=== PATIENT | female | born 1985 | race Caucasian/White ===

== ENCOUNTER 2023-05-14 11:02 | Outpatient (CLI) | payer BC, SELFPAY | END 2023-05-14 11:03 | disposition home or self-care (01) | PROVIDERS: PCP Nurse Practitioner Family; Visit Provider Nurse Practitioner Family | DX: Z00.00 Encounter for general adult medical examination without abnormal findings (principal); R63.5 Abnormal weight gain | CPT/HCPCS: 84443 ==

== ENCOUNTER 2023-09-11 09:07 | Outpatient (CLI) | payer BC, SELFPAY ==
--- NOTE | 2023-09-11 09:15 | CRLHL7_ITS ---
For Patients: As a result of the Century Cures Act, medical imaging exams and procedure reports are released immediately into your electronic medical record. You may view this report before your referring provider. If you have questions, please contact your health care provider. BILATERAL SCREENING MAMMOGRAM WITH COMPUTER-AIDED DETECTION AND TOMOSYNTHESIS TECHNIQUE: CC and MLO views were obtained. These mammographic images have been obtained using full-field digital technique. These mammographic images were interpreted with the benefit of computer-aided detection. Breast Tomosynthesis was used in this interpretation. COMPARISON FILM: Baseline. FINDINGS: The breasts are heterogeneously dense, which may obscure small masses IMPRESSION: There is no radiographic evidence for malignancy. ASSESSMENT: BI-RADS Category 1: Negative RECOMMENDATION: Routine screening mammogram in 1 year. A lay language report of this examination will be provided to the patient. Tyler Franco M.D. Diagnostic/Nuclear Medicine Radiologist [email or web address] ASTER/Dictated by: Tyler Franco MD @ 09/12/2023 9:19:00 AM (Electronically Signed)
== END 2023-09-11 09:08 | disposition home or self-care (01) ==
LOC: MAMMO 09:07
PROVIDERS: PCP Nurse Practitioner Family; Visit Provider Nurse Practitioner Family
DX: Z12.31 Encounter for screening mammogram for malignant neoplasm of breast (principal); R92.2 Inconclusive mammogram; Z80.3 Family history of malignant neoplasm of breast
CPT/HCPCS: 77063; 77067

== ENCOUNTER 2024-05-21 11:42 | Outpatient (CLI) | payer BC, SELFPAY ==
--- OUTSIDE RECORDS SUMMARY | 2024-05-21 11:48 | XMS_ITS | Referral Summary ---
Author Organization [facility] Address [address] [place] [address] Care Team Providers Care Entertainment Musician Name Role Phone Lucy Minor M.D. Primary Care Provider Source Comments Patient records contain information from all sites at [facility]. For routine questions regarding patient records, call [phone] during business hours, M-F 8:00 AM - 5:00 PM Central Time. Record requests for emergency care only can be directed to [phone] at any time.[facility] Allergies Active Allergy Reactions Criticality Noted Date Comments House Dust Mite Headache Medications Medication Sig Dispensed Refills Start Date End Date Status fluticasone (FLONASE) 50 mcg/actuation nasal spray Administer 2 sprays into affected nostril(s) 2 (two) times a day. 10/23/2016 Active fexofenadine (MANJULA) 60 mg tablet Take 60 mg by mouth daily. Active norethindrone (MICRONOR) 0.35 mg tablet TAKE 1 TABLET BY MOUTH DAILY 84 tablet 4 06/28/2020 Active sertraline (ZOLOFT) 50 mg tablet Take 50 mg by mouth daily. Active linaCLOtide (LINZESS) 145 mcg capsule Take 1 capsule (145 mcg total) by mouth every morning before breakfast. 30 capsule 1 06/19/2023 Active lubiprostone (AMITIZA) 8 mcg capsule Take 1 capsule (8 mcg total) by mouth 2 (two) times a day with meals. Take with meals 60 capsule 11 06/21/2023 Active linaCLOtide (LINZESS) 145 mcg capsule Take 1 capsule (145 mcg total) by mouth every morning before breakfast. 90 capsule 3 07/19/2023 07/13/2024 Active Active Problems Problem Noted Date Diagnosed Date Migraine Headache Classic 07/15/2018 Tendinitis Achilles Left 07/15/2018 Tendinitis Achilles Right 07/15/2018 Depression Major 08/07/2017 Rhinitis Allergic Dust Mite 03/27/2016 Irritable Bowel Syndrome With Constipation 11/24 Fasciitis Plantar 06/20/2011 Overview (07/15/2018): right Immunizations Name Administration Dates Next Due Influenza (IM) Preservative Free 08/11/2013 Influenza Split 07/31/2012 Influenza, Injectable, Mdck, Preservative Free, Quadrivalent 06/19/2020 SARS-COV-2 (COVID-19) - PFIZ ER (Discontinued)(12 years or older) 08/25/2021 Tdap 01/31/2017,02/23/2014,05/04/2010 influenza vaccine quad (FLUZONE/FLUARIX) (6 months and older)(PF) 07/28/2021,09/05/2019,08/16/2018,2016,08/06/2015,08/13/2014 Social History Tobacco Use Types Packs/Day Years Used Date Smoking Tobacco: Never Smokeless Tobacco: Never Tobacco Cessation:Counseling Given: Not Answered Alcohol Use Standard Drinks/Week Comments Yes 3 (1 standard drink = 0.6 oz pur e alcohol) Humiliation, Afraid, Rape, and Kick questionnair e Answer Date Recorded Within the last year, have y ou been afraid of your partner or ex-partner? No 05/21/2023 Within the last year, have y ou been humiliated or emotionally abused in other ways by your partner or ex-partner? No Within the last year, have y ou been kicked, hit, slapped, or otherwise physically hurt by your partner or ex-partner? No 05/21/2023 Within the last year, have y ou been raped or forced to have any kind of sexual activity by your partner or ex-partner? No 05/21/2023 Overall Financial Resource Strain (CARDIA) Answe r Date Recorded How hard is it for you to pa y for the very basics like food, housing, medical care, and heating? Not very hard 05/21/2023 Exercise Vital Sign Answer Date Recorde d On average, how many days pe r week do you engage in moderate to strenuous exercise (like a brisk walk)? 4 days 05/21/2023 On average, how many minutes do you engage in exercise at this level? 30 min 05/21/2023 Hunger Vital Sign Answer Date Recorded Within the past 12 months, y ou worried that your food would run out before you got the money to buy more. Never true 05/21/20 23 Within the past 12 months, t he food you bought just didn't last and you didn't have money to get more. Never true 05/21/2023 PRAPARE - Transportation Answer Date Re corded In the past 12 months, has l ack of transportation kept you from medical appointments or from getting medications? No 04/2023 In the past 12 months, has l ack of transportation kept you from meetings, work, or from getting things needed for daily living? No 05/21/2023 Nutrition Answer Date Recorded Nutrition: EVOO Fat Source Unknown 05/21 On average, how many serving s of fruits and vegetables do you eat per day (serving size is equal to 1 cup or approximately the size of a tennis ball)? 3-5 05/21/2023 Dental Answer Date Recorded Dental: Regular Dentist Yes 05/21/20 Employment Answer Date Recorded Employment status Employed and actively working without restrictions 05/21/2023 Housing Stability Answer Date Recorded What is your living situation today? I have a [facility] place to live 05/21/2023 Sex and Gender Information Value Date Recorded Sex Assigned at Female 05/26/2018 8:27 PM CDT Gender Identity Female 05/26/2018 8:27 PM CDT Sexual Orientation Straight 05/26/2018 8: 27 PM CDT Last Filed Vital Signs Vital Sign Reading Time Taken Comments Blood Pressure 142/79 05/22/2023 9:41 AM CDT Pulse 59 05/22/2023 9:41 AM CDT Temperature 37 ??C (98.6 ??F) 05/23/2018 4:11 PM CDT Respiratory Rate 18 04/07/2017 12:45 PM CDT Oxygen Saturation 96% 06/24/2018 7:35 AM CDT Inhaled Oxygen Concentration - - Weight 110 kg (243 lb 9.7 oz) 05/22/2023 9:41 AM CDT Height 176 cm (5' 9.29) 05/22/2023 9:41 AM CDT Body Mass Index 35.67 05/22/2023 9:41 AM CDT Plan of Treatment Not on file Procedures Procedure Name Priority Date/Time Associated Diagnosis Comments EXT THINPREP W/HPV CO-TEST SCREEN Routine 12/29/2020 1:15 PM CDT HIV-1/-2 AG AND AB SCREEN Routine 08/23/2016 9:39 AM NURSING SUPPORT WORKER from Last 3 Months or Most Recently Relevant to Health Maintenance Results * EXT ThinPrep w/HPV Co-Test Screen (12/29/2020 1:15 PM CDT) EXT ThinPrep w/HPV Co-Test Screen Normal - See Scanned Report for Details Normal - See Scanned Report for Details, [facility] - Report Received and Scanned Comment:See Care EWverywhere for Results Thin Prep Vial (Cervix/Endocervi x) 12/29/2020 1:15 PM CDT Impressions Evelin Arechiga - 01/10/2021 12:10 PM CDT Resulting Agency [facility] Specimen Collected: 12/29/20 13:15 Last Resulted: 01/10/21 12:10 [facility] Result Received: 11/04/21 15:58 Historical Provider LAB PAP PATHDX ORDER SHAINA * HIV-1/-2 Ag and Ab Screen (08/23/2016 9:39 AM NURSING SUPPORT WORKER) HIV-1/-2 Ag and Ab Screen, S Negative Negative [facility] Comment: Negative result does not rule out HIV infection. If ? acute HIV infection is suspected in a high-risk ? individual, submit plasma specimen for HIV-1 RNA ? quantification test (HIVDQ) and/or HIV-2 DNA/RNA ? test (FHV2Q). ? 08/23/2016 9:39 AM NURSING SUPPORT WORKER 08/23/2016 9:39 AM NURSING SUPPORT WORKER Soheila Johnson SOFTWARE ENGINEER DEVELOPER, CNM LAB MICROBIOLO GY - BLOOD ORDERABLES [facility] [address] [place], [place] [address] from Last 3 Months or Most Recently Relevant to Health Maintenance Care Teams Entertainment Musician Relationship Specialty Start Date End Date Lucy Minor M.D. [address] [place] [address] PCP - General 04/11/24
--- OUTSIDE RECORDS SUMMARY | 2024-05-21 11:48 | XMS_ITS | Data Portability ---
Author Organization [facility] Main Office Address [address], [place] [address] Assessment Encounter Date Assessment Date Assessment LastModified by Organization Details LastModified Time 01/10/2021 01/10/2021 Total time with patient 15 minutes [email or web address] Not available 01/10/2021 11:21:52 Plan of Treatment Reminders Order Date Submit Date Provider Last Modified By Organization Details Last Modified Time Details Appointments None recorded. Lab SARS CoV 2 RNA (COVID-19), QL, seam closer-PCR, respiratory specimen 2020 021 ZOË Main Office, [address], [place], [address], 12:20:27 Referral None recorded. Procedures None recorded. Surgeries None recorded. Imaging None recorded. Medication Orders None recorded. Patient TargetsNo targets recorded. Patient InstructionsNo instructions recorded. Reason for Referral None Reported. Results Created Date Observation Date Name Description Value Unit Range Abnormal Flag LastModifiedBy Organization Detail LastModifiedTime 01/11/2001/10/2021 SARS CoV 2 RNA (COVI D-19) , QL, seam closer-P CR, respi rator y speci men Result Not Detect ed Not Available Main Office [address], [address], 01/10/2021 11:22:24 Result Notes None recorded. Procedures Surgical History Date Name Laterality Status Provider Name and Address Organization Details Recorded Time Caesarean Section completed Arabella bustillos, [facility] 02/08/2021 15:57:21 ENT Surgery completed Arabella bustillos, [facility] 02/08/2021 15:57:27 Imaging Results None recorded. Procedure Notes None recorded. Medical Equipment None Reported. Allergies No known drug allergies Medications Name Sig Start Date Stop Date Status Note LastModified by Organization Details LastModified Time Crystal 0.35 mg tablet active Not Available Not Available Not Available Lanie Allergy active Not Available Not Available Not Available Flonase Allergy Relief active Not Available Not Available Not Available Vitals Date Recorded Body weight Heart rate Body temperature Oxygen saturation Oxygen saturation in Arterial blood by Pulse oximetry Provider Name and Address Organization Details Last Updated DateTime 1 960285. 19 g 86 /min 99.3 [degF] 97 % 97 % Arabella Lidia [facility] 11:05:59 Social History Question Answer Notes LastModified by Organizat ion Details LastModified Time Tobacco Smoking Status Never Smoker Arabella Murillo [facility], [facility] 02/08/2021 15:58:33 What Is Your Level Of Alcohol Consumption? Occasional [email or web address] Information not available 02/08/2021 What Is Your Level Of Caffeine Consumption? Moderate Information not available 02/08/2021 How Much Tobacco Do You Chew? 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 Never Used Smokeless Tobacco [email or web address] Information not available 02/08/2021 How Much Tobacco Do You Smoke? No [email or web address] Information not available 02/08/2021 Sex: Unknown Functional Status None recorded. Mental Status None recorded. Family History Relationship Description Onset Age of this Age Resolved Age Notes Mother Family history of ma lignant neoplasm Mother Hypercholesterolemia Father Migraine Medical History Condition Response Allergies/Hayfever Y Headaches Y Gynecological HistoryNo gynecological history recorded. Obstetrics History GPAL:G 0 P 0 0 0 0 Past Encounters Encounter ID Performer Location Encounter Start Date Encounter Closed Date Diagnosis/Indication Diagnosis SNOMED-CT Code [id number] ANASTACIO Avalos Main Office [address] [place] [id number] 01/10/2021 10:43:14 01/10/2021 17:44:16 Pain in throat 449569520 Exposure t o SARS-CoV-2 827863829 Health Concerns Section Related Observation LastModified by Organization Detai ls LastModified Time None Recorded Concern Status LastModified by Organization Details LastModified Time None Recorded Advance Directives Directive None Recorded Payers Encounter Date Sequence Insurance Name Policy Number Policy Keller Covered Member ID Keller Member ID Guarantor Name 01/10/2021 1 *SELF PAY* Daniela Palm Notes Date Note Type Note Provider Name and Address Organization Details Recorded Time 01/10/2021 text/html HPI Notes: Pt is new to the clinic, here today with c/o ST. Sx started yesterday. Sx worse in AM. Has been using ibuprofen for sx relief. She has had both covid vaccines, with the 2nd dose 3 weeks ago. They are in town visiting family, she has been exposed to a lot of people recently. No otalgia, eye discomfort, cough, SOB, N/V/D, body aches, F/C, rash, SYKES. Juni Palomo, [facility] [address] [place], [address], [place] [facility] 01/10/2021 12:45:06 OBGyn Episode No OBEpisode recorded.
--- OUTSIDE RECORDS SUMMARY | 2024-05-21 11:48 | XMS_ITS | Clinical Summary ---
Author Organization [facility] Address [address] [place] [address] Care Team Providers Care Entry Level Business Analyst Name Role Phone Lucy Minor M.D. Primary Care Provider Source Comments Patient records contain information from all sites at [facility]. For routine questions regarding patient records, call [phone] during business hours, M-F 8:00 AM - 5:00 PM Central Time. Record requests for emergency care only can be directed to [phone] at any time.[facility] Allergies Active Allergy Reactions Criticality Noted [...] quad (FLUZONE/FLUARIX) (6 months and older)(PF) 07/28/2021,09/05/2019,08/16/2018,2016,08/06/2015,08/13/2014 Family History Medical History Relation Name Comments Hyperlipidemia Father Quinten Coronary artery disease Maternal Grandfather Gilbert Hyperlipidemia Maternal Grandfather Gilbert Arthritis Maternal Grandmother Addis Breast cancer Maternal Grandmother Addis Skin cancer Maternal Grandmother Addis Thyroid disease Maternal Grandmother Addis Arthritis Mother Lizz Breast cancer Mother Lizz Hyperlipidemia Mother Lizz Skin cancer Mother Lizz Coronary artery disease Paternal Grandfather Flaquito Dementia Paternal Grandfather Flaquito Diabetes Paternal Grandfather Flaquito Stroke Paternal Grandfather Flaquito Diabetes Paternal Grandmother Ana Fernandez Anxiety disorder Sister Haritha Gestational diabetes Sister Haritha Skin cancer Sister Haritah Relation Name Status Comments Father Quinten Maternal Grandfather Gilbert Maternal Grandmother Addis Mother Lizz Paternal Grandfather Flaquito Paternal Grandmother Ana Fernandez Sister Haritha Social History Tobacco Use Types Packs/Day Years [...] money to buy more. Never true 05/21/20 Within the past 12 months, t he [...] your living situation today? I have a [facility] place to live 05/21/2023 Sex and Gender [...] 05/22/2023 9:41 AM CDT Plan of Treatment Health Maintenance Due Date Last Done Comments Depression Monitoring (PHQ-9) 1985 Hepatitis C Screening 1985 Lipid (Cholesterol) Screening 1985 Hepatitis B Vaccines (1 of 3 - 19+ 3-dose series) 2004 Influenza Vaccine (#1) 2024 , 07/27/2022, 07/28/2021, Additional history exists Cervical Cancer Screening 12/29/20252020, 12/29/2020, 09/20/2016, Additional history exists DTaP,Tdap,and Td Vaccines (4 - Td or Tdap) 01/31/2027 01/31/2017, 02/23/2014, 05/04/2010 HIV Screening Completed 08/23/2016 COVID-19 Vaccine Completed 08/17/2023, , 08/25/2021, Additional history exists HPV Vaccines Aged Out No longer eligi ble based on patient's age to complete this topic Pneumococcal vaccine (0-64 years) Aged Out No longer eligible based on patient's age to complete this topic Procedures Procedure Name Priority Date/Time Associated Diagnosis Comments EXT THINPREP W/HPV CO-TEST SCREEN Routine 12/29/2020 1:15 PM CDT HIV-1/-2 AG AND AB SCREEN Routine 08/23/2016 9:39 AM LOADING UNIT OPERATOR CRIMPING from Last 3 Months or Most Recently [...] - 01/10/2021 12:10 PM CDT Resulting Agency [facility] Specimen Collected: 12/29/20 13:15 Last Resulted: 01/10/21 12:10 Received From: [facility] Result Received: 11/04/21 15:58 Historical Provider LAB PAP PATHDX ORDER SHAINA * HIV-1/-2 Ag and Ab Screen (08/23/2016 9:39 AM LOADING UNIT OPERATOR CRIMPING) Pathologist [facility] HIV-1/-2 Ag and Ab Screen, S Negative Negative [facility] Comment: Negative result does not rule out HIV infection. If ? acute HIV infection is suspected in a high-risk ? individual, submit plasma specimen for HIV-1 RNA ? quantification test (HIVDQ) and/or HIV-2 DNA/RNA ? test (FHV2Q). ? 08/23/2016 9:39 AM LOADING UNIT OPERATOR CRIMPING 08/23/2016 9:39 AM LOADING UNIT OPERATOR CRIMPING Soheila Johnson CAR AUDIO INSTALLER, CNM LAB MICROBIOLO GY - BLOOD ORDERABLES [facility] [address] [place] [address], [facility] from Last 3 Months or Most Recently Relevant to Health Maintenance Care Teams Entry Level Business Analyst Relationship Specialty Start Date End [place] [address] PCP - General 04/11/24
--- OUTSIDE RECORDS SUMMARY | 2024-05-21 11:48 | XMS_ITS | Clinical Summary ---
Author Organization [facility] Address [place], [place] [address] Care Team Providers Care Retail Parts Pro Name Role Phone Faith Rosales NP Primary Care Provider [phone] Allergies No known active allergies Medications Medication Sig Dispensed Refills Start Date End Date Status Crystal 0.35 mg tablet Take 0.35 mg by mouth once daily. 06/28/2021 Active sertraline (ZOLOFT) 50 mg tablet 05/05/2021 Active fexofenadine (MANJULA) 180 mg tablet Manjula Allergy Active albuterol HFA (PRO-AIR; VENTOLIN; PROVENTIL) 90 mcg/actuation inhalerIndications:Cou gh Inhale 2 Puffs by mouth every 4 hours if needed (cough or wheezing). 1 Each 09/24/2021 Active plecanatide (Trulance) 3 mg tabIndications:Chronic idiopathic constipation Take 3 mg by mouth once daily. 30 Tablet 11 11/02/2021 Active Active Problems No known active problems Immunizations Name Administration Dates Next Due COVID-19 vaccine ([employer]InStaff 30mcg/0.3mL) PF, MDV 08/25/2021 Influenza, IIV4 07/28/2021,08/16/2018,08/17/2017 Social History Tobacco Use Types Packs/Day Years Used Date Smoking Tobacco: Never Smokeless Tobacco: Never Tobacco Cessation:Counseling Given: Yes Alcohol Use Standard Drinks/Week Comments Not Currently 0 (1 standard drink = 0.6 oz pur e alcohol) Social Connections Answer Date Recorded Frequency of Communication with Friends and Fami ly Not on file 10/15/2021 Financial Resource Strain Answer Date R ecorded Difficulty of Paying Living Expenses Not on file 10/15/2021 Difficulty of Paying Living Expenses Not on file 10/15/2021 Sex and Gender Information Value Date Recorded Sex Assigned at Not on file Gender Identity Not on file Sexual Orientation Not on file Obstetrics History Last Filed Vital Signs Vital Sign Reading Time Taken Comments Blood Pressure 146/69 01/06/2023 2:17 PM CDT Pulse 70 01/06/2023 2:17 PM CDT Temperature 36.6 ??C (97.8 ??F) 01/06/2023 2:17 PM CD T Respiratory Rate 16 01/06/2023 2:17 PM CDT Oxygen Saturation 100% 01/06/2023 2:17 PM CDT Inhaled Oxygen Concentration - - Weight 107 kg (235 lb 12.8 oz) 11/02/2021 3:28 P M REGISTERED DENTAL ASSISTANT RDA Height - - Body Mass Index - - Plan of Treatment Health Maintenance Due Date Last Done Comments Tdap 1996 Depression screening for age 12+ 1997 HIV for age 15-65 2000 BMI (ht and wt on same day) for age 18+ 2003 Hepatitis C screening for age 18-79 2003 Tetanus booster 2005 COVID-19 vaccine series ( season) 2023 08/11/2022, 08/25/2021, 12/25/2020, Additional history exists Pap test for age 21-65 12/30/2023 12/29/2020, 2020 Influenza for age 9-49 06/15/2024 , 08/16/2018, 08/17/2017 Pneumococcal series for age 6-64 Aged Out No longer eligible based on patient's age to complete this topic Procedures Procedure Name Priority Date/Time Associated Diagnosis Comments INFECTION PREVENTION COORDINATOR THIN PREP PAP SCREEN IMAGED Routine 12/29/2020 1:15 PM CDT from Last 3 Months or Most Recently Relevant to Health Maintenance Results * INFECTION PREVENTION COORDINATOR THIN PREP PAP SCREEN IMAGED (12/29/2020 1:15 PM CDT) Case Report Gynecologic Cytology Report ? Case: [id number] ? Authorizing Provider: ??Paulina Paul ?Collected: ? 12/29/2020 1315 ? [place], ? Ordering Location: ? [facility] ?Received: ?12/31/2020 1036 ? First Screen: ?Neeta Guzman ? Specimen: ?INFECTION PREVENTION COORDINATOR ThinPrep Vial Screening, Cervical/Vaginal ? 01/10/2021 12:10 PM CDT [facility] INTERPRETATION/ RESULT NEGATIVE FOR INTRAEPITHELIAL LESION OR MALIGNANCY (NIL) (none) 01/10/2021 12:10 PM CDT [facility] IMEN ADEQUACY Satisfactory for evaluation Endocervical component present 01/10/2021 12:10 PM CDT [facility] HPV REQUEST HPV and PAP 01/10/2021 12:10 PM CDT [facility] Date of LMP 12/12/2020 01/10/2021 12:10 PM CDT [facility] Last Pap Date 09/20/2016 01/10/2021 12:10 PM CDT [facility] Last Pap Result NIL 12:10 PM CDT [facility] Comment:-HPV Additional Information 01/10/2021 12:10 PM CDT [facility] Comment: Interpreted at [facility] - [address], [place] [address] Automated Review Successful 01/10/2021 12:10 PM CDT [facility] Comment:Specimen processed s uccessfully by automated human resources support specialist device, ThinPrep Imaging System, [employer] ANCILLARY TESTING INFECTION PREVENTION COORDINATOR HPV Ordered, Please see separate report 01/10/2021 12:10 PM CDT [facility] Note The pap test is a screening technique, not a diagnostic procedure. It is used primarily to screen for squamous cancers and precursor lesions. Published studies have shown that it is subject to both false negative and false positive results. The pap test should not be used as the sole means to diagnose or exclude pre-malignant and malignant lesions. 01/10/2021 12:10 PM CDT [facility] Other (Cervical/Vagina l) 12/29/2020 1:15 PM CDT 12/31/2020 10:36 AM CDT Paulina Paul MD PATHOLOGY/ CYTOLOGY [facility] [address] [place] [address], [place] from Last 3 Months or Most Recently Relevant to Health Maintenance Care Teams Retail Parts Pro Relationship Specialty Start Date End Date Fiath Rosales, CUFF SETTER [address] [place] [address] PCP - General Emergency Medicine 11/02/21
--- OUTSIDE RECORDS SUMMARY | 2024-05-21 11:48 | XMS_ITS ---
Author Organization [facility] Address [address] [place] [address] Care Team Providers Care Manager Business Process Name Role Phone Unavailable Unavailable Unavailable Surgery Details Not on file Complications Check Surgery Details section. Procedure Estimated Blood Loss Check Surgery Details section. Procedure Findings Check Surgery Details section. Procedure Specimens Taken Check Surgery Details section.
== END 2024-05-21 11:43 | disposition home or self-care (01) ==
LOC: NFLDREF 11:46
PROVIDERS: PCP Nurse Practitioner Family; Visit Provider Registered Nurse
DX: R00.2 Palpitations (principal)
CPT/HCPCS: 84443

== ENCOUNTER 2024-05-30 08:24 | Outpatient (CLI) | payer BC, SELFPAY ==
--- OUTSIDE RECORDS SUMMARY | 2024-05-30 08:29 | XMS_ITS ---
Author Organization [facility] Address [address] [place] [address] Care Team Providers Care Slackman Name Role Phone Unavailable Unavailable Unavailable Surgery Details Not on file Complications Check Surgery Details section. Procedure Estimated Blood Loss Check Surgery Details section. Procedure Findings Check Surgery Details section. Procedure Specimens Taken Check Surgery Details section.
--- OUTSIDE RECORDS SUMMARY | 2024-05-30 08:29 | XMS_ITS | Clinical Summary ---
Author Organization [facility] Address [address] [place] [address] Care Team Providers Care Neck Cutter Name Role Phone Lucy Minor M.D. Primary Care Provider Source Comments Patient records contain information from all sites at [facility]. For routine questions regarding patient records, call [phone] during business hours, M-F 8:00 AM - 5:00 PM Central Time. Record requests for emergency care only can be directed to [phone] at any time.[facility] Allergies Active Allergy Reactions Criticality Noted Date [...] Gestational diabetes Sister Haritha Skin cancer Sister Haritha Relation Name Status Comments Father Quinten Maternal [...] your living situation today? I have a [facility] place to live 05/21/2023 Sex and [...] AND AB SCREEN Routine 08/23/2016 9:39 AM DIAMOND SIZER AND SORTER from Last 3 Months or Most Recently [...] - 01/10/2021 12:10 PM CDT Resulting Agency [facility] Specimen Collected: 12/29/20 13:15 Last Resulted: 01/10/21 12:10 Received From: [facility] Result Received: 11/04/21 15:58 Historical Provider LAB PAP PATHDX ORDER SHAINA * HIV-1/-2 Ag and Ab Screen (08/23/2016 9:39 AM DIAMOND SIZER AND SORTER) Pathologist [facility] HIV-1/-2 Ag and Ab Screen, S Negative Negative [facility] Comment: Negative result does not rule out HIV infection. If ? acute HIV infection is suspected in a high-risk ? individual, submit plasma specimen for HIV-1 RNA ? quantification test (HIVDQ) and/or HIV-2 DNA/RNA ? test (FHV2Q). ? 08/23/2016 9:39 AM DIAMOND SIZER AND SORTER 08/23/2016 9:39 AM DIAMOND SIZER AND SORTER Soheila Johnson EDGE BURNISHER UPPERS, CNM LAB MICROBIOLO GY - BLOOD ORDERABLES [facility] [address] [place] [address], [facility] from Last 3 Months or Most Recently Relevant to Health Maintenance Care Teams Neck Cutter Relationship Specialty Start Date End Date [place] [address] PCP - General 04/11/24
--- OUTSIDE RECORDS SUMMARY | 2024-05-30 08:29 | XMS_ITS | Clinical Summary ---
Author Organization [facility] Address [place], [place] [address] Care Team Providers Care Garbage Collector Name Role Phone Faith Rosales NP Primary Care Provider +1- [phone] Allergies No known active allergies Medications Medication [...] Name Administration Dates Next Due COVID-19 vaccine (2C2P [employer] 30mcg/0.3mL) PF, MDV 08/25/2021 Influenza, IIV4 07/28/2021,08/16/2018,08/17/2017 [...] lb 12.8 oz) 11/02/2021 3:28 P M STAND GRINDER Height - - Body Mass Index - [...] Procedure Name Priority Date/Time Associated Diagnosis Comments CHICKEN TENDER THIN PREP PAP SCREEN IMAGED Routine 12/29/2020 1:15 PM CDT from Last 3 Months or Most Recently Relevant to Health Maintenance Results * CHICKEN TENDER THIN PREP PAP SCREEN IMAGED (12/29/2020 1:15 PM CDT) Case Report Gynecologic Cytology Report ? Case: [id number] ? Authorizing Provider: ??Paulina Paul ?Collected: ? 12/29/2020 1315 ? Anne-Marie, ? Ordering Location: ? [facility] ?Received: ?12/31/2020 1036 ? First Screen: ?Neeta Guzman ? Specimen: ?CHICKEN TENDER ThinPrep Vial Screening, Cervical/Vaginal ? 01/10/2021 12:10 PM CDT [facility] INTERPRETATION/ RESULT NEGATIVE FOR INTRAEPITHELIAL LESION OR MALIGNANCY (NIL) (none) 01/10/2021 12:10 PM CDT [facility] IMEN ADEQUACY Satisfactory for evaluation Endocervical component present 01/10/2021 12:10 PM CDT [facility] HPV REQUEST HPV and PAP 01/10/2021 12:10 PM CDT [facility] Date of LMP 12/12/2020 01/10/2021 12:10 PM CDT [facility] Last Pap Date 09/20/2016 01/10/2021 12:10 PM CDT [facility] Last Pap Result NIL 12:10 PM CDT [facility] Comment:-HPV Additional Information 01/10/2021 12:10 PM CDT [facility] Comment: Interpreted at [facility] - [address], [place] [address] Automated Review Successful 01/10/2021 12:10 PM CDT [facility] Comment:Specimen processed s uccessfully by automated television actor device, ThinPrep Imaging System, [employer] ANCILLARY TESTING CHICKEN TENDER HPV Ordered, Please see separate report 01/10/2021 12:10 PM CDT [facility] Note The pap test is a [...] and malignant lesions. 01/10/2021 12:10 PM CDT [facility] Other (Cervical/Vagina l) 12/29/2020 1:15 PM CDT 12/31/2020 10:36 AM CDT Paulina Paul MD PATHOLOGY/ CYTOLOGY [facility] [address] [place] [address], [place] from Last 3 Months or Most Recently Relevant to Health Maintenance Care Teams Garbage Collector Relationship Specialty Start Date End Date Faith Rosales, GRAZING EXAMINER [address] [place] [address] PCP - General Emergency Medicine 11/02/21
--- OUTSIDE RECORDS SUMMARY | 2024-05-30 08:29 | XMS_ITS | Referral Summary ---
Author Organization [facility] Address [address] [place] [address] Care Team Providers Care Rubber Goods Inspector Name Role Phone Lucy Minor M.D. Primary Care Provider Source Comments Patient records contain information from all sites at [facility]. For routine questions regarding patient records, call [phone] during business hours, M-F 8:00 AM - 5:00 PM Central Time. Record requests for emergency care only can be directed to [phone] at any time.[facility] Allergies Active Allergy Reactions Criticality Noted Date [...] your living situation today? I have a [facility] place to live 05/21/2023 Sex and [...] AND AB SCREEN Routine 08/23/2016 9:39 AM GRAIN BUYER from Last 3 Months or Most Recently [...] - 01/10/2021 12:10 PM CDT Resulting Agency [facility] Specimen Collected: 12/29/20 13:15 Last Resulted: 01/10/21 12:10 [facility] Result Received: 11/04/21 15:58 Historical Provider LAB PAP PATHDX ORDER SHAINA * HIV-1/-2 Ag and Ab Screen (08/23/2016 9:39 AM GRAIN BUYER) HIV-1/-2 Ag and Ab Screen, S Negative Negative [facility] Comment: Negative result does not rule out HIV infection. If ? acute HIV infection is suspected in a high-risk ? individual, submit plasma specimen for HIV-1 RNA ? quantification test (HIVDQ) and/or HIV-2 DNA/RNA ? test (FHV2Q). ? 08/23/2016 9:39 AM GRAIN BUYER 08/23/2016 9:39 AM GRAIN BUYER Soheila Johnson BULLET ASSEMBLY PRESS OPERATOR, CNM LAB MICROBIOLO GY - BLOOD ORDERABLES [facility] [address] [place], [place] [address] from Last 3 Months or Most Recently Relevant to Health Maintenance Care Teams Rubber Goods Inspector Relationship Specialty Start Date End Date Lucy Minor M.D. [address] [place] [address] PCP - General 04/11/24
== END 2024-05-30 08:25 | disposition home or self-care (01) ==
PROVIDERS: PCP Nurse Practitioner Family; Visit Provider Nurse Practitioner Family
DX: N64.52 Nipple discharge (principal); R00.2 Palpitations; Z13.220 Encounter for screening for lipoid disorders
CPT/HCPCS: 80061; 83735; 84146

== ENCOUNTER 2024-06-25 08:58 | Outpatient (CLI) | payer BC, SELFPAY ==
--- NOTE | 2024-06-25 08:45 | CRLHL7_ITS ---
For Patients: As a result of the Century Cures Act, medical imaging exams and procedure reports are released immediately into your electronic medical record. You may view this report before your referring provider. If you have questions, please contact your health care provider. BILATERAL DIAGNOSTIC MAMMOGRAM WITH COMPUTER-AIDED DETECTION AND TOMOSYNTHESIS BILATERAL BREAST ULTRASOUND CLINICAL HISTORY: BILATERAL breast nipple discharge. COMPARISON: 09/11/2023. TECHNIQUE: Digital BILATERAL mammogram in four projections with computer-aided detection. Tomosynthesis was used in this interpretation. Real-time ultrasound imaging of BILATERAL breast with imaging documentation. BREAST COMPOSITION: The breasts are heterogeneously dense, which may obscure small masses. FINDINGS: 3D CC/MLO BILATERAL mammogram images submitted. No suspicious masses or architectural distortion. No adenopathy or suspicious calcifications. Targeted BILATERAL subareolar ultrasound performed. No fluid collection or mass. No duct ectasia or intraductal nodule. IMPRESSION: No suspicious findings. No evidence of papilloma. RECOMMENDATIONS: Routine screening mammography. BI-RADS Category 2: Benign Results and recommendations discussed with the patient. A lay language report of this examination will be provided to the patient. Dictated by Oscar Yung MD @ 06/25/2024 12:14:14 PM /sp SP/Dictated by: Oscar Yung MD @ 06/25/2024 12:14:00 PM (Electronically Signed)
--- OUTSIDE RECORDS SUMMARY | 2024-06-25 09:01 | XMS_ITS ---
Author Organization [facility] Address [address] [place] [address] Care Team Providers Care Daub Color Mixer Name Role Phone Unavailable Unavailable Unavailable Surgery Details Not on file Complications Check Surgery Details section. Procedure Estimated Blood Loss Check Surgery Details section. Procedure Findings Check Surgery Details section. Procedure Specimens Taken Check Surgery Details section.
--- OUTSIDE RECORDS SUMMARY | 2024-06-25 09:01 | XMS_ITS | Clinical Summary ---
Author Organization [facility] Address [place], [place] [address] Care Team Providers Care Metal Mixer Name Role Phone Faith Rosales NP Primary Care Provider +1- [phone] Allergies No known active allergies Medications Medication [...] Active Active Problems No known active problems Encounters Date Type Department Care Team Description 06/06/2024 Orders Only [facility] [address] [place] [address] Ifrah Carrizales 1 scan: (1-Ord) Zio Report from Last 3 Months Immunizations Name Administration Dates Next Due COVID-19 vaccine ([employer] 30mcg/0.3mL) PFCLIFTON 08/25/2021 Influenza, IIV4 07/28/2021,08/16/2018,08/17/2017 Social History Tobacco [...] lb 12.8 oz) 11/02/2021 3:28 P M WEB SITE ADMIN Height - - Body Mass Index - - Plan of Treatment Health Maintenance Due Date Last Done Comments Tdap 1996 Depression screening for age 12+ 1997 HIV for age 15-65 2000 BMI (ht and wt on same day) for age 18+ 2003 Hepatitis C screening for age 18-79 2003 Tetanus booster 2005 Pap test for age 21-65 12/30/2023 12/29/2020, 2020 COVID-19 vaccine series (2022- season) 2024 08/11/2022, 08/25/2021, 12/25/2020, Additional history exists Influenza for age 9-49 06/15/2024 , 08/16/2018, 08/17/2017 Pneumococcal series for age 6-64 Aged Out No longer eligible based on patient's age to complete this topic Procedures Procedure Name Priority Date/Time Associated Diagnosis Comments EXTENDED HOLTER Routine 06/06/2024 Palpitations ROLLOFF TRUCK DRIVER THIN PREP PAP SCREEN IMAGED Routine 12/29/2020 1:15 PM CDT from Last 3 Months or Most Recently Relevant to Health Maintenance Results * EXTENDED HOLTER (06/06/2024) Nola Valdez PHARMACY RESOURCE TECH CARDIAC S TIMMY ORD * ROLLOFF TRUCK DRIVER THIN PREP PAP SCREEN IMAGED (12/29/2020 1:15 PM CDT) Case Report Gynecologic Cytology Report ? Case: [id number] ? Authorizing Provider: ??Paulina Paul ?Collected: ? 12/29/2020 1315 ? MD Anne-Marie ? Ordering Location: ? [facility] ?Received: ?12/31/2020 1036 ? First Screen: ?Neeta Guzman ? Specimen: ?ROLLOFF TRUCK DRIVER ThinPrep Vial Screening, Cervical/Vaginal ? 01/10/2021 12:10 PM CDT [facility] INTERPRETATION/ RESULT NEGATIVE FOR INTRAEPITHELIAL LESION OR MALIGNANCY (NIL) (none) 01/10/2021 12:10 PM CDT [facility] IMEN ADEQUACY Satisfactory for evaluation Endocervical component present 01/10/2021 12:10 PM CDT [facility] HPV REQUEST HPV and PAP 01/10/2021 12:10 PM CDT [facility] Date of LMP 12/12/2020 01/10/2021 12:10 PM CDT [facility] Last Pap Date 09/20/2016 01/10/2021 12:10 PM CDT [facility] Last Pap Result NIL 12:10 PM CDT [facility] Comment:-HPV Additional Information 01/10/2021 12:10 PM CDT [facility] Comment: Interpreted at [facility] - [address] [facility] [address], [place] [address] Automated Review Successful 01/10/2021 12:10 PM CDT [facility] Comment:Specimen processed s uccessfully by automated credit compliance officer device, ThinPrep Imaging System, [employer] ANCILLARY TESTING ROLLOFF TRUCK DRIVER HPV Ordered, Please see separate report 01/10/2021 12:10 PM CDT [facility] Note The pap test [...] and malignant lesions. 01/10/2021 12:10 PM CDT [facility] Other (Cervical/Vagina l) 12/29/2020 1:15 PM CDT 12/31/2020 10:36 AM CDT Paulina Paul MD PATHOLOGY/ CYTOLOGY [facility] [address] [place] [address], from Last 3 Months or Most Recently Relevant to Health Maintenance Care Teams Metal Mixer Relationship Specialty Start Date End Date Faith Rosales PHARMACY RESOURCE TECH [address] [place] [address] PCP - General Emergency Medicine 11/02/21
--- OUTSIDE RECORDS SUMMARY | 2024-06-25 09:01 | XMS_ITS | Clinical Summary ---
Author Organization [facility] Address [address] [place] [address] Care Team Providers Care Computer Operations Manager Name Role Phone Lucy Minor M.D. Primary Care Provider Source Comments Patient records contain information from all sites at [facility]. For routine questions regarding patient records, call [phone] during business hours, M-F 8:00 AM - 5:00 PM Central Time. Record requests for emergency care only can be directed to [phone] at any time.[facility] Allergies Active Allergy Reactions Criticality Noted Date [...] Immunizations Name Administration Dates Next Due Influenza Split 07/31/2012 Influenza, Injectable, Mdck, Preservative Free, Quadrivalent 06/19/2020 SARS-COV-2 (COVID-19) - PFIZ ER (Discontinued)(12 years or older) 08/25/2021 Tdap 01/31/2017,02/23/2014,05/04/2010 influenza trivalent vaccine (6 months and older)(PF) 08/11/2013 influenza vaccine quad (FLUZONE/FLUARIX) (6 months and [...] your living situation today? I have a [facility] place to live 05/21/2023 Sex and [...] AND AB SCREEN Routine 08/23/2016 9:39 AM WOOD HEEL FLAP RUBBER from Last 3 Months or Most Recently [...] - 01/10/2021 12:10 PM CDT Resulting Agency [facility] Specimen Collected: 12/29/20 13:15 Last Resulted: 01/10/21 12:10 [facility]: [facility] Result Received: 11/04/21 15:58 Historical Provider LAB PAP PATHDX ORDER SHAINA * HIV-1/-2 Ag and Ab Screen (08/23/2016 9:39 AM WOOD HEEL FLAP RUBBER) Pathologist [facility] HIV-1/-2 Ag and Ab Screen, S Negative Negative [facility] Comment: Negative result does not rule out HIV infection. If ? acute HIV infection is suspected in a high-risk ? individual, submit plasma specimen for HIV-1 RNA ? quantification test (HIVDQ) and/or HIV-2 DNA/RNA ? test (FHV2Q). ? 08/23/2016 9:39 AM WOOD HEEL FLAP RUBBER 08/23/2016 9:39 AM WOOD HEEL FLAP RUBBER Soheila Johnson APRN, CNM LAB MICROBIOLO GY - BLOOD ORDERABLES [facility] [address] [place] [address], [facility] from Last 3 Months or Most Recently Relevant to Health Maintenance Care Teams Computer Operations Manager Relationship Specialty Start Date End Date Lucy Minor M.D. [address] [place] [address] PCP - General 04/11/24
--- OUTSIDE RECORDS SUMMARY | 2024-06-25 09:01 | XMS_ITS | Referral Summary ---
Author Organization [facility] Address [address] [place] [address] Care Team Providers Care Licensed Psychologist Name Role Phone Lucy Minor M.D. Primary Care Provider Source Comments Patient records contain information from all sites at [facility]. For routine questions regarding patient records, call [phone] during business hours, M-F 8:00 AM - 5:00 PM Central Time. Record requests for emergency care only can be directed to [phone] at any time.[facility] Allergies Active Allergy Reactions Criticality Noted [...] your living situation today? I have a [facility] place to live 05/21/2023 Sex and [...] AND AB SCREEN Routine 08/23/2016 9:39 AM ACCESS SERVICES LIBRARIAN from Last 3 Months or Most Recently Relevant to Health Maintenance Results * EXT ThinPrep w/HPV Co-Test Screen (12/29/2020 1:15 PM CDT) EXT ThinPrep w/HPV Co-Test Screen Normal - See Scanned Report for Details Normal - See Scanned Report for Details, [facility] - Report Received and Scanned Comment:See Care EWverywhere for Results Thin Prep Vial (Cervix/Endocervi x) 12/29/2020 1:15 PM CDT [facility] Arechiga - 01/10/2021 12:10 PM CDT Resulting Agency [facility] Specimen Collected: 12/29/20 13:15 Last Resulted: 01/10/21 12:10 Received From: [facility] Result Received: 11/04/21 15:58 Historical Provider LAB PAP PATHDX ORDER SHAINA * HIV-1/-2 Ag and Ab Screen (08/23/2016 9:39 AM ACCESS SERVICES LIBRARIAN) HIV-1/-2 Ag and Ab Screen, S Negative Negative [facility] Comment: Negative result does not rule out HIV infection. If ? acute HIV infection is suspected in a high-risk ? individual, submit plasma specimen for HIV-1 RNA ? quantification test (HIVDQ) and/or HIV-2 DNA/RNA ? test (FHV2Q). ? 08/23/2016 9:39 AM ACCESS SERVICES LIBRARIAN 08/23/2016 9:39 AM ACCESS SERVICES LIBRARIAN Soheila Johnson APRN, CNM LAB MICROBIOLO GY - BLOOD ORDERABLES [facility] [address] [place], [place] [address] from Last 3 Months or Most Recently Relevant to Health Maintenance Care Teams Licensed Psychologist Relationship Specialty Start Date End Date Lucy Minor M.D. [address] [place] [address] PCP - General 04/11/24
--- NOTE | 2024-06-25 09:15 | CRLHL7_ITS ---
For Patients: As a result of the Century Cures Act, medical imaging exams and procedure reports are released immediately into your electronic medical record. You may view this report before your referring provider. If you have questions, please contact your health care provider. PLEASE SEE BILATERAL BREAST DIAGNOSTIC MAMMOGRAM PERFORMED SAME DAY. CRL:sp SP/Dictated by: Oscar Yung MD @ 06/25/2024 12:14:00 PM (Electronically Signed)
== END 2024-06-25 08:59 | disposition home or self-care (01) ==
LOC: MAMMO 08:58
PROVIDERS: PCP Nurse Practitioner Family; Visit Provider Nurse Practitioner Family
DX: N64.52 Nipple discharge (principal); R92.2 Inconclusive mammogram
CPT/HCPCS: 76642; 77066; G0279

== ENCOUNTER 2024-06-27 12:47 | Outpatient (CLI) | payer BC, SELFPAY ==
--- OUTSIDE RECORDS SUMMARY | 2024-06-27 12:50 | XMS_ITS | Referral Summary ---
Author Organization [facility] Address [address] [place] [address] Care Team Providers Care Crossing Gateman Name Role Phone Lucy Minor M.D. Primary Care Provider Source Comments Patient records contain information from all sites at [facility]. For routine questions regarding patient records, call [phone] during business hours, M-F 8:00 AM - 5:00 PM Central Time. Record requests for emergency care only can be directed to [phone] at any time.[facility] Allergies Active Allergy Reactions Criticality Noted Date [...] your living situation today? I have a [facility] place to live 05/21/2023 Sex and [...] AND AB SCREEN Routine 08/23/2016 9:39 AM OFFICE SUPPORT ASSOCIATE from Last 3 Months or Most Recently [...] - 01/10/2021 12:10 PM CDT Resulting Agency [facility] Specimen Collected: 12/29/20 13:15 Last Resulted: 01/10/21 12:10 Received From: [facility] [facility] Result Received: 11/04/21 15:58 Historical Provider LAB PAP PATHDX ORDER SHAINA * HIV-1/-2 Ag and Ab Screen (08/23/2016 9:39 AM OFFICE SUPPORT ASSOCIATE) HIV-1/-2 Ag and Ab Screen, S Negative Negative [facility] Comment: Negative result does not rule out HIV infection. If ? acute HIV infection is suspected in a high-risk ? individual, submit plasma specimen for HIV-1 RNA ? quantification test (HIVDQ) and/or HIV-2 DNA/RNA ? test (FHV2Q). ? 08/23/2016 9:39 AM OFFICE SUPPORT ASSOCIATE 08/23/2016 9:39 AM OFFICE SUPPORT ASSOCIATE Soheila Johnson APRN, CNM LAB MICROBIOLO GY - BLOOD ORDERABLES [facility] - [employer] [address] [place], [place] [address] from Last 3 Months or Most Recently Relevant to Health Maintenance Care Teams Crossing Gateman Relationship Specialty Start Date End Date Lucy Minor M.D. [address] [place] [address] PCP - General 04/11/24
--- OUTSIDE RECORDS SUMMARY | 2024-06-27 12:50 | XMS_ITS | Clinical Summary ---
Author Organization [facility] Address [address] [place] [address] Care Team Providers Care Skills Trainer Name Role Phone Lucy Minor M.D. Primary Care Provider Source Comments Patient records contain information from all sites at [facility]. For routine questions regarding patient records, call [phone] during business hours, M-F 8:00 AM - 5:00 PM Central Time. Record requests for emergency care only can be directed to [phone] at any time.[facility] Allergies Active Allergy Reactions Criticality Noted [...] your living situation today? I have a [facility] place to live 05/21/2023 Sex and [...] AND AB SCREEN Routine 08/23/2016 9:39 AM STUCCO PLASTERER from Last 3 Months or Most Recently [...] - 01/10/2021 12:10 PM CDT Resulting Agency [facility] Specimen Collected: 12/29/20 13:15 Last Resulted: 01/10/21 12:10 [facility] Result Received: 11/04/21 15:58 Historical Provider LAB PAP PATHDX ORDER SHAINA * HIV-1/-2 Ag and Ab Screen (08/23/2016 9:39 AM STUCCO PLASTERER) Pathologist [facility] HIV-1/-2 Ag and Ab Screen, S Negative Negative [facility] Comment: Negative result does not rule out HIV infection. If ? acute HIV infection is suspected in a high-risk ? individual, submit plasma specimen for HIV-1 RNA ? quantification test (HIVDQ) and/or HIV-2 DNA/RNA ? test (FHV2Q). ? 08/23/2016 9:39 AM STUCCO PLASTERER 08/23/2016 9:39 AM STUCCO PLASTERER Soheila Johnson APRN, CNM LAB MICROBIOLO GY - BLOOD ORDERABLES [facility] [address] [place] [address], [place] from Last 3 Months or Most Recently Relevant to Health Maintenance Care Teams Skills Trainer Relationship Specialty Start Date End Date Lucy Minor M.D. [address] [place] [address] PCP - General 04/11/24
--- OUTSIDE RECORDS SUMMARY | 2024-06-27 12:51 | XMS_ITS ---
Author Organization [facility] Address [address] [place] [address] Care Team Providers Care Public Records Officer Name Role Phone Unavailable Unavailable Unavailable Surgery Details Not on file Complications Check Surgery Details section. Procedure Estimated Blood Loss Check Surgery Details section. Procedure Findings Check Surgery Details section. Procedure Specimens Taken Check Surgery Details section.
--- OUTSIDE RECORDS SUMMARY | 2024-06-27 12:51 | XMS_ITS | Clinical Summary ---
Author Organization [employer] [facility] Address [place], [place] [address] Care Team Providers Care Account Maintenance Representative Name Role Phone Faith Rosales NP Primary Care Provider +1- [phone] Allergies No known active allergies Medications Medication [...] Department Care Team Description 06/06/2024 Orders Only [facility] [address] [place] [address] Ifrah Carrizales 1 scan: (1-Ord) Zio Report from Last 3 Months Immunizations Name Administration Dates Next Due COVID-19 vaccine ([employer] NTLYSOGENE 30mcg/0.3mL) PFCLIFTON 08/25/2021 Influenza, IIV4 07/28/2021,08/16/2018,08/17/2017 Social [...] lb 12.8 oz) 11/02/2021 3:28 P 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 Height - - Body Mass Index - - Plan of Treatment Upcoming Encounters Date Type Department Care Team (Late st Contact Info) Description 06/27/2024 1:00 PM CDT Ancillary Procedure [facility] [address] [place] [address] Health Maintenance Due Date Last Done Comments Tdap 1996 Depression screening for age 12+ 1997 HIV for age 15-65 2000 BMI (ht and wt on same day) for age 18+ 2003 Hepatitis C screening for age 18-79 2003 Tetanus booster 2005 Pap test for age 21-65 12/30/2023 12/29/2020, 2020 COVID-19 vaccine series ( season) 2024 08/11/2022, 08/25/2021, 12/25/2020, Additional history exists Influenza for age 9-49 06/15/2024 , 08/16/2018, 08/17/2017 Pneumococcal series for age 6-64 Aged Out No longer eligible based on patient's age to complete this topic Procedures Procedure Name Priority Date/Time Associated Diagnosis Comments EXTENDED HOLTER Routine 06/06/2024 Palpitations ASSOCIATE PRINCIPAL THIN PREP PAP SCREEN IMAGED Routine 12/29/2020 1:15 PM CDT from Last 3 Months or Most Recently Relevant to Health Maintenance Results * EXTENDED HOLTER (06/06/2024) Nola Valdez HAND BUFFING WHEEL FORMER CARDIAC S ERVICES ORD * ASSOCIATE PRINCIPAL THIN PREP PAP SCREEN IMAGED (12/29/2020 1:15 PM CDT) Case Report Gynecologic Cytology Report ? Case: [id number] ? Authorizing Provider: ??Paulina Paul ?Collected: ? 12/29/2020 1315 ? MD Anne-Marie ? Ordering Location: ? [facility] ?Received: ?12/31/2020 1036 ? First Screen: ?Neeta Guzman ? Specimen: ?ASSOCIATE PRINCIPAL ThinPrep Vial Screening, Cervical/Vaginal ? 01/10/2021 12:10 PM CDT [facility] INTERPRETATION/ RESULT NEGATIVE FOR INTRAEPITHELIAL LESION OR MALIGNANCY (NIL) (none) 01/10/2021 12:10 PM T [facility] IMEN ADEQUACY Satisfactory for evaluation Endocervical component present 01/10/2021 12:10 PM CDT [facility] HPV REQUEST HPV and PAP 01/10/2021 12:10 PM CDT [facility] Date of LMP 12/12/2020 01/10/2021 12:10 PM CDT [facility] Last Pap Date 09/20/2016 01/10/2021 12:10 PM T [facility] Last Pap Result NIL 12:10 PM T [facility] Comment:-HPV Additional Information 01/10/2021 12:10 PM T [facility] Comment: Interpreted at [facility], Central Laboratory - [address] [facility] [address], [place] [address] Automated Review Successful 01/10/2021 12:10 PM T [facility] Comment:Specimen processed s uccessfully by automated undercoat sprayer device, ThinPrep Imaging System, [employer] ANCILLARY TESTING ASSOCIATE PRINCIPAL HPV Ordered, Please see separate report 01/10/2021 12:10 PM T [facility] Note The pap test is [...] pre-malignant and malignant lesions. 01/10/2021 12:10 PM T [facility] Other (Cervical/Vagina l) 12/29/2020 1:15 PM CDT 12/31/2020 10:36 AM CDT Paulina Paul MD PATHOLOGY/ CYTOLOGY [facility] [address] [place] [address], from Last 3 Months or Most Recently Relevant to Health Maintenance Care Teams Account Maintenance Representative Relationship Specialty Start Date End Date Faith Rosales HAND BUFFING WHEEL FORMER [address] [place] [address] PCP - General Emergency Medicine 11/02/21
== END 2024-06-27 12:48 | disposition home or self-care (01) ==
PROVIDERS: PCP Nurse Practitioner Family; Visit Provider Nurse Practitioner Family
DX: R00.2 Palpitations (principal); I45.10 Unspecified right bundle-branch block
CPT/HCPCS: 93306

== ENCOUNTER 2024-07-07 10:30 | Outpatient (CLI) | payer BC, SELFPAY ==
--- OUTSIDE RECORDS SUMMARY | 2024-07-07 10:34 | XMS_ITS | Clinical Summary ---
Author Organization [employer] [facility] Address [place], [place] [address] Care Team Providers Care Title I Assistant Name Role Phone Faith Rosales NP Primary Care Provider +1- [phone] Allergies No known active allergies Medications Medication Sig Dispensed Refills Start Date End Date Status Crystal 0.35 mg tablet Take 0.35 mg by mouth once daily. 06/28/2021 Active sertraline (ZOLOFT) 50 mg tablet 05/05/2021 Active fexofenadine (LANIE) 180 mg tablet Lanie Allergy Active albuterol HFA (PRO-AIR; VENTOLIN; PROVENTIL) 90 mcg/actuation inhalerIndications:Cou gh Inhale 2 Puffs by mouth every 4 hours if needed (cough or wheezing). 1 Each 09/24/2021 Active plecanatide (Trulance) 3 mg tabIndications:Chronic idiopathic constipation Take 3 mg by mouth once daily. 30 Tablet 11 11/02/2021 Active Active Problems No known active problems Encounters Date Type Department Care Team Description 06/27/2024 1:00 PM CDT Ancillary Procedure [facility] [address] [place] [address] 06/06/2024 Orders Only [facility] [address] [place] [address] Ifrah Carrizales 1 scan: (1-Ord) Zio Report from Last 3 Months Immunizations Name Administration Dates Next Due COVID-19 vaccine ([employer]ech 30mcg/0.3mL) CLIFTON PLUNKETT 08/25/2021 Influenza, IIV4 07/28/2021,08/16/2018,08/17/2017 Social History Tobacco [...] lb 12.8 oz) 11/02/2021 3:28 P 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 Height - - Body Mass Index - [...] Procedure Name Priority Date/Time Associated Diagnosis Comments ECHO TTE COMPLETE WO CONTRAST Routine 06/27/2024 1:37 PM CDT Palpitations EXTENDED HOLTER Routine 06/06/2024 Palpitations ORTHOPEDICS PEDIATRIC PHYSICIAN THIN PREP PAP SCREEN IMAGED Routine 12/29/2020 1:15 PM CDT from Last 3 Months or Most Recently Relevant to Health Maintenance Results * ECHO TTE COMPLETE WO CONTRAST (06/27/2024 1:37 PM CDT) AORTIC VALVE MEAN PG 9 mmHg EJECTION FRACTION 74 % LVEDD 4.6 cm Anatomical Region Laterality Modality Ultrasound 06/27/2024 1:10 PM CDT Narrative 06/27/2024 1:51 PM CDT ECHOCARDIOGRAM RAISA VERDUGO ?Accession#: ?? [id number] : ?1985 39 years Study Date: ?? 06/27/2024 1:10:47 PM Gender: F ? BP: ? 137/79 mmHg Height: 175.00 cm ? BSA: ?2.15 m? ? ? Weight: 100.00 kg ? Tech: ? MHR ?Referring MD: FAITH ROSALES Site: ? [facility] Reading Location: MOBILE OP Patient Location: Outpatient. Procedure: 2D, Color Doppler and Spectral Doppler. Indication for study: palpitations Cardiac Rhythm: Regular and with premature ventricular contractions.Study quality: Fair. Final Impressions: 1. Normal left ventricular size, normal wall thickness, normal global systolic function, calculated EF of 74 %. 2. Right ventricular cavity size is normal, global systolic RV function is normal. Comparison There are no prior studies on this patient for comparison purposes. Chamber Sizes and Function Normal left ventricular size, normal wall thickness, normal global systolic function, calculated EF of 74 %. Left atrial size is normal. Left atrial pressure is normal. Right ventricular cavity size is normal, global systolic RV function is normal. RV wall thickness is normal. The right atrium is normal. Right atrial volume index is 8 ml/m? ? ?. Right atrial area is 10 cm? ? ?. The pulmonary artery is of normal size and origin. The sinus of Valsalva is normal sized. The ascending aorta is normal sized. Valves, RV Pressures and Diastolic Function The aortic valve is normal in structure and trileaflet, no stenosis and no regurgitation. The mitral valve is normal in structure, no mitral regurgitation. Normal diastolic function. The tricuspid valve is normal in structure. Tricuspid regurgitation is regurgitation is not evident. Unable to assess right ventricular systolic pressure. The pulmonic valve is normal. Mild pulmonary regurgitation. Masses, Effusion, Shunts There is no pericardial effusion. The inferior vena cava is normal sized, respiratory size variation greater than 50%. No left to right shunting was detected by limited color flow Doppler interrogation of the interatrial septum. MEASUREMENTS AND CALCULATIONS 2-D Measurements and LV Function: LVID (d) ?4.6 cm Planimetered EF 74 % LVID (s) ?3.2 cm LV FS% (2D) ? 30 % IVS (d) ? 1.0 cm LVOT diameter ?? 2.3 cm LVPW (d) ?1.0 cm HR ?66 bpm Ao Sinus ?3.8 cm LA Vol index ?23 ml/m2 Ao ST junct 3.4 cm RA Vol index ?8 ml/m2 Asc Ao ?3.7 cm RA area ? 10 cm? ? ? LA ?3.6 cm RV Max 4C (d) ?? 2.8 cm Diastology: Mitral ?Tissue Doppler E Peak 0.9 m/s ??e', Septum ? 0.09 m/s A Peak 0.7 m/s ??e', Lateral ?0.10 m/s E/A ?1.2 ?E/e' Average ?? 9.30 DT ? 172 msec Aortic Valve: Vmax ? 1.9 m/s ??BRIAN (V) ?? 2.35 cm? ? ? VTI ?0.37 m ?? BRIAN (I) ?? 2.38 cm? ? ? LVOT V max 1.0 m/s ??Max PG ?15 mmHg LVOT VTI ?? 0.21 m ?? Mean PG ?? 9 mmHg SV ? 89 ml ?Dim Index 0.55 SV index ?? 41 ml/m? ? ? CO ?5.8 l/min ?CI ?2.7 l/min/m? ? ? Mitral Valve: MVA ?4.4 cm? ? ? MV P 1/2 50 msec Tricuspid Valve and estimated PA pressures: TAPSE 2.9 cm . This study was interpreted by an [facility] accredited facility. CC: [facility] (formerly [facility]) [facility]. ??Final ?? Procedure Note Waqas Miranda MD - 06/27/2024 ECHOCARDIOGRAM RAISA VERDUGO : 1985 39 years Study Date: 06/27/2024 1:10:47 PM Gender: F BP: 137/79 mmHg Height: 175.00 cm BSA: 2.15 m? ? ? Weight: 100.00 kg Tech: R Referring MD: FAITH ROSALES Site: [facility] Reading Location: MOBILE OP Patient Location: Outpatient. Procedure: 2D, Color Doppler and Spectral Doppler. Indication for study: palpitations Cardiac Rhythm: Regular and with premature ventricular contractions.Studyquality: Fair. Final Impressions: 1. Normal left ventricular size, normal wall thickness, normal globalsystolic function, calculated EF of 74 %. 2. Right ventricular cavity size is normal, global systolic RV functionis normal. Comparison There are no prior studies on this patient for comparison purposes. Chamber Sizes and Function Normal left ventricular size, normal wall thickness, normal globalsystolic function, calculated EF of 74 %. Left atrial size is normal. Leftatrial pressure is normal. Right ventricular cavity size is normal, globalsystolic RV function is normal. RV wall thickness is normal. The rightatrium is normal. Right atrial volume index is 8 ml/m? ? ?. Right atrial areais 10 cm? ? ?. The pulmonary artery is of normal size and origin. The sinusof Valsalva is normal sized. The ascending aorta is normal sized. Valves, RV Pressures and Diastolic Function The aortic valve is normal in structure and trileaflet, no stenosis and noregurgitation. The mitral valve is normal in structure, no mitralregurgitation. Normal diastolic function. The tricuspid valve is normal instructure. Tricuspid regurgitation is regurgitation is not evident. Unableto assess right ventricular systolic pressure. The pulmonic valve isnormal. Mild pulmonary regurgitation. Masses, Effusion, Shunts There is no pericardial effusion. The inferior vena cava is normal sized,respiratory size variation greater than 50%. No left to right shunting wasdetected by limited color flow Doppler interrogation of the interatrialseptum. MEASUREMENTS AND CALCULATIONS 2-D Measurements and LV Function: LVID (d) 4.6 cm Planimetered EF 74 % LVID (s) 3.2 cm LV FS% (2D) 30 % IVS (d) 1.0 cm LVOT diameter 2.3 cm LVPW (d) 1.0 cm HR 66 bpm Ao Sinus 3.8 cm LA Vol index 23 ml/m2 Ao ST junct 3.4 cm RA Vol index 8 ml/m2 Asc Ao 3.7 cm RA area 10 cm? ? ? LA 3.6 cm RV Max 4C (d) 2.8 cm Diastology: Mitral Tissue Doppler E Peak 0.9 m/s e', Septum 0.09 m/s A Peak 0.7 m/s e', Lateral 0.10 m/s E/A 1.2 E/e' Average 9.30 DT 172 msec Aortic Valve: Vmax 1.9 m/s BRIAN (V) 2.35 cm? ? ? VTI 0.37 m BRIAN (I) 2.38 cm? ? ? LVOT V max 1.0 m/s Max PG 15 mmHg LVOT VTI 0.21 m Mean PG 9 mmHg SV 89 ml Dim Index 0.55 SV index 41 ml/m? ? ? CO 5.8 l/min CI 2.7 l/min/m? ? ? Mitral Valve: MVA 4.4 cm? ? ? MV P 1/2 50 msec Tricuspid Valve and estimated PA pressures: TAPSE 2.9 cm . This study was interpreted by an [facility] accredited facility. CC: [facility] (med records) [facility]. Final Faith Rosales PATIENT PORTAL CONCIERGE ECHO ORD * EXTENDED HOLTER (06/06/2024) Nola Valdez PATIENT PORTAL CONCIERGE CARDIAC S ERVICES ORD * ORTHOPEDICS PEDIATRIC PHYSICIAN THIN PREP PAP SCREEN IMAGED (12/29/2020 1:15 PM CDT) Case Report Gynecologic Cytology Report ? Case: [id number] ? Authorizing Provider: ??Paulina Paul ?Collected: ? 12/29/2020 1315 ? MD Anne-Marie ? Ordering Location: ? [facility] ?Received: ?12/31/2020 1036 ? First Screen: ?Neeta Guzman ? Specimen: ?ORTHOPEDICS PEDIATRIC PHYSICIAN ThinPrep Vial Screening, Cervical/Vaginal ? 01/10/2021 12:10 PM CDT [facility] INTERPRETATION/ RESULT NEGATIVE FOR INTRAEPITHELIAL LESION OR MALIGNANCY (NIL) (none) 01/10/2021 12:[address] [facility] IMEN ADEQUACY Satisfactory for evaluation Endocervical component present 01/10/2021 12:10 PM CDT [facility] HPV REQUEST HPV and PAP 01/10/2021 12:10 PM CDT [facility] Date of LMP 12/12/2020 01/10/2021 12:10 PM CDT [facility] Last Pap Date 09/20/2016 01/10/2021 12:10 PM CDT [facility] Last Pap Result NIL 12:10 PM CDT [facility] Comment:-HPV Additional Information 01/10/2021 12:10 PM CDT [facility] Comment: Interpreted at [facility], Central Laboratory - [address], [place] [address] Automated Review Successful 01/10/2021 12:10 PM CDT [facility] Comment:Specimen processed s uccessfully by automated supervisor winding department device, ThinPrep Imaging System, [employer] ANCILLARY TESTING ORTHOPEDICS PEDIATRIC PHYSICIAN HPV Ordered, Please see separate report 01/10/2021 12:10 PM CDT [facility] Note The pap test is a [...] and malignant lesions. 01/10/2021 12:[address] [facility] Other (Cervical/Vagina l) 12/29/2020 1:15 PM CDT 12/31/2020 10:36 AM CDT Paulina Paul MD PATHOLOGY/ CYTOLOGY [facility] [address] [place] [address], from Last 3 Months or Most Recently Relevant to Health Maintenance Care Teams Title I Assistant Relationship Specialty Start Date End Date Faith Rosales NP [address] [place] [address] PCP - General Emergency Medicine 11/02/21
--- OUTSIDE RECORDS SUMMARY | 2024-07-07 10:34 | XMS_ITS | Data Portability ---
Author Organization [place] - [facility] Main Office Address [address], [place] [address] Assessment Encounter Date Assessment Date Assessment LastModified by Organization Details LastModified Time 01/10/2021 01/10/2021 Total time with patient 15 minutes [email or web address] Not available 01/10/2021 11:21:52 Plan of Treatment Reminders Order Date Submit Date Provider Last Modified By Organization Details Last Modified Time Details Appointments None recorded. Lab SARS CoV 2 RNA (COVID-19), QL, director of agronomy-PCR, respiratory specimen 2020 021 ZOË Main Office, [address], [address], 12:20:27 Referral None recorded. Procedures None recorded. Surgeries None recorded. Imaging None recorded. Medication Orders None recorded. Patient TargetsNo targets recorded. Patient InstructionsNo instructions recorded. Reason for Referral None Reported. Results Created Date Observation Date Name Description Value Unit Range Abnormal Flag Note LastModifiedBy Organization Detail LastModifiedTime 01/11/2001/10/2021 SARS CoV 2 RNA (COVI D-19) , QL, director of agronomy-P CR, respi rator y speci men Result Not Detect ed Not Available Main Office [address], [place], [address], 01/10/2021 11:22:24 Result Notes None recorded. Procedures Surgical History Date Name Laterality Status Provider Name and Address Organization Details Recorded Time Caesarean Section completed Arabella Murillo [facility] 02/08/2021 15:57:21 ENT Surgery completed Arabella Murillo [facility] 02/08/2021 15:57:27 Imaging Results None recorded. [...] Address Organization Details Last Updated DateTime 1 741492. 19 g 86 /min 99.3 [degF] 97 % 97 % Arabella Murillo [facility] 11:05:59 Social History Question Answer Notes LastModified by Organizat ion Details LastModified Time Tobacco Smoking Status Never Smoker Arabella Murillo [facility] 02/08/2021 15:58:33 What Is Your Level Of Alcohol Consumption? Occasional [email or web address] Information not available 02/08/2021 What Is Your Level Of Caffeine Consumption? Moderate [email or web address] Information not available 02/08/2021 How Much Tobacco Do You Chew? 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 Never Used Smokeless Tobacco [email or web address] Information not available 02/08/2021 How Much Tobacco Do You Smoke? No [email or web address] Information not available 02/08/2021 Sex: Unknown Functional Status None recorded. Mental Status None recorded. Family History Relationship Description Onset Age of this Age Resolved Age Notes LastModified by Organization Details LastModified Time Mother Family history of malignant neoplasm [email or web address] Not available 2020 15:57:47 Mother Hypercholest erolemia [email or web address] Not available 2020 15:57:57 Father Migraine [email or web address] Not availabl e 02/08/2021 15:58:07 Medical History Condition Response Allergies/Hayfever Y Headaches Y Gynecological HistoryNo gynecological history recorded. Obstetrics History GPAL:G 0 P 0 0 0 0 Past Encounters Encounter ID Performer Location Encounter Start Date Encounter Closed Date Diagnosis/Indication Diagnosis SNOMED-CT Code Diagnosis ICD10 Code [id number] ANASTACIO Avalos Main Office [address] [place] [phone] 01/10/2021 10:43:14 01/10/2021 17:44:16 Pain in throat 835274117 R07.0 Exposure t o SARS-CoV-2 136882782 Z20.822 Health Concerns Section Related Observation LastModified by [...] SOB, N/V/D, body aches, F/C, rash, SYKES. ANASTACIO Avalos [address] [place] [address], [phone], [facility] 01/10/2021 12:45:06 OBGyn Episode No OBEpisode recorded.
--- OUTSIDE RECORDS SUMMARY | 2024-07-07 10:34 | XMS_ITS ---
Author Organization [facility] Address [address] [place] [address] Care Team Providers Care Fish Inspector Name Role Phone Unavailable Unavailable Unavailable Surgery Details Not on file Complications Check Surgery Details section. Procedure Estimated Blood Loss Check Surgery Details section. Procedure Findings Check Surgery Details section. Procedure Specimens Taken Check Surgery Details section.
--- OUTSIDE RECORDS SUMMARY | 2024-07-07 10:34 | XMS_ITS | Clinical Summary ---
Author Organization [facility] Address [address] [place] [address] Care Team Providers Care Helminthology Teacher Name Role Phone Lucy Minor M.D. Primary Care Provider Source Comments Patient records contain information from all sites at [facility]. For routine questions regarding patient records, call [phone] during business hours, M-F 8:00 AM - 5:00 PM Central Time. Record requests for emergency care only can be directed to [phone] at any time.[facility] Allergies Active Allergy Reactions Criticality Noted Date [...] your living situation today? I have a [facility] place to live 05/21/2023 Sex and [...] of 3 - 19+ 3-dose series) 2004 COVID-19 Vaccine ( season) 2024 08/17/2023, 08/11/2022, 08/25/2021, Additional history exists Influenza Vaccine (#1) 2024 , 07/27/2022, 07/28/2021, Additional history exists Cervical Cancer Screening 12/29/20252020, 12/29/2020, 09/20/2016, Additional history exists DTaP,Tdap,and Td Vaccines (4 - Td or Tdap) 01/31/2027 01/31/2017, 02/23/2014, 05/04/2010 HIV Screening Completed 08/23/2016 HPV Vaccines Aged Out No longer eligi ble based on patient's age to complete this topic Pneumococcal vaccine (0-64 years) Aged Out No longer eligible based on patient's age to complete this topic Procedures Procedure Name Priority Date/Time Associated Diagnosis Comments EXT THINPREP W/HPV CO-TEST SCREEN Routine 12/29/2020 1:15 PM CDT HIV-1/-2 AG AND AB SCREEN Routine 08/23/2016 9:39 AM INFORMATION RECEPTIONIST from Last 3 Months or Most Recently [...] - 01/10/2021 12:10 PM CDT Resulting Agency [email or web address] Specimen Collected: 12/29/20 13:15 Last Resulted: 01/10/21 12:10 [facility] Result Received: 11/04/21 15:58 Historical Provider LAB PAP PATHDX ORDER SHAINA * HIV-1/-2 Ag and Ab Screen (08/23/2016 9:39 AM INFORMATION RECEPTIONIST) Pathologist [facility] HIV-1/-2 Ag and Ab Screen, S Negative Negative [facility] Comment: Negative result does not rule out HIV infection. If ? acute HIV infection is suspected in a high-risk ? individual, submit plasma specimen for HIV-1 RNA ? quantification test (HIVDQ) and/or HIV-2 DNA/RNA ? test (FHV2Q). ? 08/23/2016 9:39 AM INFORMATION RECEPTIONIST 08/23/2016 9:39 AM INFORMATION RECEPTIONIST Soheila Johnson SVP OPERATIONS, CNM LAB MICROBIOLO GY - BLOOD ORDERABLES [facility] [address] [place] [address], [facility] from Last 3 Months or Most Recently Relevant to Health Maintenance Care Teams Helminthology Teacher Relationship Specialty Start Date End Date Lucy Minor M.D. [address] [place] [address] PCP - General 04/11/24
--- OUTSIDE RECORDS SUMMARY | 2024-07-07 10:34 | XMS_ITS | Referral Summary ---
Author Organization [facility] Address [address] [place] [id number] Care Team Providers Care Duct Layer Helper Name Role Phone Lucy Minor M.D. Primary Care Provider Source Comments Patient records contain information from all sites at [facility]. For routine questions regarding patient records, call [phone] during business hours, M-F 8:00 AM - 5:00 PM Central Time. Record requests for emergency care only can be directed to [phone] at any time.[facility] Allergies Active Allergy Reactions Criticality Noted Date [...] your living situation today? [facility] have [facility] place to live 05/21/2023 Sex and [...] AND AB SCREEN Routine 08/23/2016 9:39 AM AUTOM[employer]IVE [employer]ASS IN[employer] from Last 3 Months or Most Recently [...] 13:15 Last Resulted: 01/10/21 12:10 Received From: [facility] Result Received: 11/04/21 15:58 Historical Provider LAB PAP PATHDX ORDER SHAINA * HIV-1/-2 Ag and Ab Screen (08/23/2016 9:39 AM AUTOMOT[employer] IN[employer]) HIV-1/-2 Ag and Ab Screen, S Negative Negative [facility] Comment: Negative result does not rule out HIV infection. If ? acute HIV infection is suspected in a high-risk ? individual, submit plasma specimen for HIV-1 RNA ? quantification test (HIVDQ) and/or HIV-2 DNA/RNA ? test (FHV2Q). ? 08/23/2016 9:39 AM AUTOMOT[employer] GLASS IN[employer] 08/23/2016 9:39 AM AUTOMOTIVE GLASS INST[employer]ER Soheila Johnson APRN, CNM LAB MICROBIOLO GY - BLOOD ORDERABLES [facility] [address] [place], [place] [address] from Last 3 Months or Most Recently Relevant to Health Maintenance Care Teams Duct Layer Helper Relationship Specialty Start Date End Date Lucy Minor M.D. [address] [place] [id number] PCP - General 04/11/24
--- NOTE | 2024-07-22 12:49 | W.PM.SLEEP ---
Sleep Study Details Details Interpreting Provider: Aditya Date of Sleep Study: 07/07/24 Sleep Study Details: STUDY TYPE:? Home unattended ? BMI:? 34 ORDERING PROVIDER:Pacheco Rosales INDICATION:? Concern about sleep apnea ? SLEEP SUMMARY:? 608 minutes monitored RESPIRATORY SUMMARY:? AHI 11.2 Low oxygen 84 0.9% of study oxygen below 90% Snoring 97.5% PERIODIC LIMB MOVEMENTS OF SLEEP:? Not recorded CARDIAC:? Range 48-84, mean 57.7 beats per minute IMPRESSION:? Mild obstructive sleep apnea RECOMMENDATION: Treatment options include CPAP dental appliance weight loss and/or airway expansion surgery.
== END 2024-07-07 10:31 | disposition home or self-care (01) ==
LOC: SLEEP 10:30
PROVIDERS: PCP Nurse Practitioner Family; Visit Provider Nurse Practitioner Family
DX: G47.33 Obstructive sleep apnea (adult) (pediatric) (principal)
CPT/HCPCS: 95806

== ENCOUNTER 2024-09-26 08:55 | Outpatient (CLI) | payer BC, SELFPAY ==
--- NOTE | 2024-09-26 09:00 | CRLHL7_ITS ---
For Patients: As a result of the Cures Act, medical imaging exams and procedure reports are released immediately into your electronic medical record. You may view this report before your referring provider. If you have questions, please contact your health care provider. Indication: SINUSITIS; EAR AND SINUS CONGESTION; FEELS LIKE FLUID IN EARS Technique: Performed without IV contrast Comparison: None available Findings: Frontal sinuses: Clear. Ethmoid sinuses: Postop changes noted. No opacification. Maxillary sinuses: Mild mucosal thickening within the maxillary sinuses along with a 1.1 cm mucous retention cyst within the left maxillary sinus. The maxillary sinus drainage pathways are patent on both sides. Postop changes noted. A smaller mucous retention cyst is present on the right measuring 3.8 millimeters. Sphenoid sinuses: Mucous retention cyst is present within the right sphenoid sinus measuring 9 millimeters. Left sphenoid sinus is clear. Patent Sphenoethmoidal recesses. Nasal Cavity: Slight rightward curvature of the nasal septum. No polyps. No TMJ abnormalities identified. The visualized portions of the orbits, intracranial contents and upper soft tissue neck are grossly negative. Middle ear cavities are normal. No effusion. Impression: 1. Postop changes. Small mucous retention cysts within the maxillary sinuses and right sphenoid sinus. 2. Mild rightward curvature of the nasal septum. No middle ear effusion. Please note that all CT scans at this facility use dose modulation, iterative reconstruction, and/or weight-based dosing when appropriate to reduce radiation dose to as low as reasonably achievable. Dictated by Oscar Yung MD @ 09/26/2024 1:01:14 PM (Electronically Signed)
== END 2024-09-26 08:56 | disposition home or self-care (01) ==
LOC: CT 08:55
PROVIDERS: PCP Nurse Practitioner Family; Visit Provider Otolaryngology
DX: J32.9 Chronic sinusitis, unspecified (principal); J34.1 Cyst and mucocele of nose and nasal sinus; J34.2 Deviated nasal septum
CPT/HCPCS: 70486

== ENCOUNTER 2025-09-01 08:24 | Outpatient (CLI) | payer BC, SELFPAY ==
[2025-09-02 23:58] LABS: HPV Source Vaginal
[2025-09-04 10:57] LABS: Pap Test Digital Imaging Done
== END 2025-09-01 08:25 | disposition home or self-care (01) ==
PROVIDERS: PCP Nurse Practitioner Family; Visit Provider Nurse Practitioner Family
DX: Z12.4 Encounter for screening for malignant neoplasm of cervix (principal); Z00.00 Encounter for general adult medical examination without abnormal findings; Z13.6 Encounter for screening for cardiovascular disorders; R53.83 Other fatigue
CPT/HCPCS: 80053; 80061; 82306; 84403; 84443; 85025; 87624; 87625; 88141; 88142; 88175